=== PATIENT | male | born 1985 | race African-American/Black ===

== ENCOUNTER 2018-10-26 23:48 | Emergency (ER) | payer BC, MEDICAID ==
[~2018-10-26] VITALS: Ht 185.4 cm; Wt 89.0 kg
[2018-10-27] MEDS ORDERED: HYDRALAZINE 20MG/ML VIAL IV ONE (00:30)
[2018-10-27] MEDS ORDERED: DEXT 5%/0.9% NACL 1,000 ML IV ONE (00:30)
[2018-10-27 00:47] LABS: BASOPHILS % 0.4 % (0.0-2.0); EOSINOPHILS % 0.9 % (0.0-5.0); HEMATOCRIT. 44.2 % (42.0-52.0); LYMPHOCYTES % 26.5 % (20.0-50.0); MEAN CORPUSCULAR HEMOGLOBIN 27.6 pg (28.0-32.0); MEAN CORPUSCULAR VOLUME 81.4 fL (80.0-94.0); MONOCYTES % 8.2 % (2.0-8.0); PLATELET 287 x1000/uL (130-400); RED BLOOD CELL COUNT 5.43 mill/uL (4.7-6.1)
[2018-10-27 00:54] LABS: CHLORIDE 100 mEq/L (98-107)
[2018-10-27 00:58] LABS: ETHANOL BLOOD < 10 mg/dL
[2018-10-27] MEDS ORDERED: IPRATROPIUM BROMIDE (0.02%) 0.5MG/2.5ML NEB HHN STA (01:42)
[2018-10-27] MEDS ORDERED: DEXAMETHASONE 4MG/ML 1ML VIAL IV ONE (01:45)
[2018-10-27 02:19] LABS: CLARITY URINE CLEAR (CLEAR); COLOR URINE YELLOW (YELLOW); KETONES URINE NEGATIVE (NEGATIVE); LEUKOCYTE ESTERASE URINE NEGATIVE (NEGATIVE); NITRITE URINE NEGATIVE (NEGATIVE); OCCULT BLOOD URINE NEGATIVE (NEGATIVE); PROTEIN URINE NEGATIVE (NEGATIVE); SPECIFIC GRAVITY URINE 1.016 (1.005-1.030); UROBILINOGEN URINE 0.2 E.U./dL (0.2-1.0)
[2018-10-27 02:28] LABS: *BARBITURATES SCREEN URINE NEGATIVE (NEGATIVE)
[2018-10-27 02:29] LABS: *AMPHETAMINES SCREEN URINE NEGATIVE (NEGATIVE); *BENZODIAZEPINES SCREEN URINE NEGATIVE (NEGATIVE); *COCAINE SCREEN URINE NEGATIVE (NEGATIVE); METHADONE URINE SCREEN NEGATIVE (NEGATIVE); OPIATES URINE SCREEN NEGATIVE (NEGATIVE)
[2018-10-27 02:30] LABS: CANNABINOID URINE SCREEN PRESUMTIVE POSITIVE (NEGATIVE); PHENCYCLIDINE URINE SCREEN NEGATIVE (NEGATIVE)
[2018-10-27 02:49] VITALS: BP 131/69
== END 2018-10-27 03:00 | disposition home or self-care (01) ==
LOC: ER 23:48
DX: J45.909 Unspecified asthma, uncomplicated (principal); F12.10 Cannabis abuse, uncomplicated
CPT/HCPCS: 36415; 71045; 80053; 80305; 80307; 80320; 80329; 81003; 82962; 83880; 84484; 85025; 93005; 94640; 96374; 99284; J1100; J7042; Z7610; G0480

== ENCOUNTER 2018-12-13 13:43 | Emergency (ER) | payer BC ==
[~2018-12-13] VITALS: Ht 182.9 cm; Wt 85.0 kg
[2018-12-13 14:58] VITALS: BP 129/93
[2018-12-13 15:05] LABS: CHLORIDE 105 mEq/L (98-107)
[2018-12-13 15:10] LABS: BASOPHILS % 0.1 % (0.0-2.0); HEMATOCRIT. 46.8 % (42.0-52.0); HEMOGLOBIN. 15.9 g/dL (14.0-18.0); MEAN CORPUSCULAR HEMOGLOBIN 27.8 pg (28.0-32.0); MEAN CORPUSCULAR VOLUME 81.9 fL (80.0-94.0); MEAN PLATELET VOLUME 7.5 fl (7.4-10.4); MONOCYTES % 4.4 % (2.0-8.0); NEUTROPHILS % 81.5 % (40.0-76.0); PLATELET 304 x1000/uL (130-400); RED BLOOD CELL COUNT 5.72 mill/uL (4.7-6.1); RED CELL DISTRIBUTION WIDTH 13.1 % (11.6-14.6)
== END 2018-12-13 17:05 | disposition home or self-care (01) ==
LOC: ER 13:43
DX: F41.1 Generalized anxiety disorder (principal); I10 Essential (primary) hypertension; F12.90 Cannabis use, unspecified, uncomplicated; Z87.891 Personal history of nicotine dependence
CPT/HCPCS: 36415; 71045; 83880; 84484; 85379; 93005; 99284